=== PATIENT | male | born 1970 | race American Indian/Alaskan Native ===

== ENCOUNTER 2019-01-02 08:25 | Emergency (ER) | payer OTHER ==
[~2019-01-02] VITALS: Ht 165.1 cm; Wt 63.5 kg
[2019-01-02 08:33] VITALS: TEMP 98.6
[2019-01-02 10:25] VITALS: BP 118/78
== END 2019-01-02 10:20 | disposition home or self-care (01) ==
LOC: ED 08:25
PROC: 0H9CXZZ Drainage of Left Upper Arm Skin, External Approach (ICD-10-PCS; principal; 2019-01-02)
DX: L72.3 Sebaceous cyst (principal)
CPT/HCPCS: 87070; 87205; 99282

== ENCOUNTER 2019-07-22 20:57 | Emergency (ER) | payer BC ==
[~2019-07-22] VITALS: Ht 165.1 cm; Wt 61.2 kg
[2019-07-22 21:50] LABS: PLATELET COUNT 321 K/uL (142-355)
[2019-07-22 22:04] LABS: POTASSIUM 3.8 mmol/L (3.6-5.2); SODIUM 139 mmol/L (136-145)
[2019-07-22 23:17] VITALS: BP 139/92; TEMP 98.2
== END 2019-07-22 23:17 | disposition home or self-care (01) ==
LOC: ED 20:57
PROVIDERS: Emergency Medicine
DX: R07.89 Other chest pain (principal)
CPT/HCPCS: 36415; 80053; 82150; 82550; 83690; 84484; 85027; 93005; 99283